=== PATIENT | male | born 1980 | race Caucasian/White ===

== ENCOUNTER 2019-06-28 22:13 | Emergency (ER) | payer MEDICARE ==
[~2019-06-28] VITALS: Ht 175.3 cm; Wt 100.9 kg
[2019-06-28 22:16] VITALS: BP 151/88
[2019-06-28] MEDS ORDERED: INHA1INH2 (22:40)
[2019-06-28] MEDS ORDERED: ALBU18HF2 INH (22:40)
== END 2019-06-28 23:00 | disposition home or self-care (01) ==
LOC: ER 22:20
DX: J06.9 Acute upper respiratory infection, unspecified (principal); F12.90 Cannabis use, unspecified, uncomplicated; Z87.891 Personal history of nicotine dependence; Z79.899 Other long term (current) drug therapy
CPT/HCPCS: 99283

== ENCOUNTER 2023-06-05 08:04 | Emergency (ER) | payer MEDICARE, OTHER ==
[~2023-06-05] VITALS: Ht 175.3 cm; Wt 76.4 kg
[~2023-06-05 08:04] MED LIST: ALBU18HF2 INH; INHA1INH2
[2023-06-05 08:07] VITALS: BP 139/82; PULSE 100; RESP 16; TEMP 98.4; O2SAT 98
[2023-06-05] MEDS ORDERED: ONDA4TAB12 PO (10:15)
[2023-06-05] MEDS: ondansetron 4mg rapidly disintigrating tab PO ONE (10:35)
== END 2023-06-05 10:37 | disposition home or self-care (01) ==
LOC: ER 08:05
DX: B34.9 Viral infection, unspecified (principal); Z20.822 Contact with and (suspected) exposure to COVID-19; R11.0 Nausea; J00 Acute nasopharyngitis [common cold]; Z91.018 Allergy to other foods; Z79.899 Other long term (current) drug therapy; F12.90 Cannabis use, unspecified, uncomplicated
CPT/HCPCS: 36415; 71045; 87502; 87503; 87811; 99284

== ENCOUNTER 2024-04-16 09:16 | Emergency (ER) | payer OTHER ==
[~2024-04-16] VITALS: Ht 175.3 cm; Wt 77.5 kg
[~2024-04-16 09:16] MED LIST changes: +ONDA-243 PO
[2024-04-16 09:20] VITALS: TEMP 97.9
[2024-04-16 11:09] VITALS: BP 108/66; PULSE 59; RESP 15; O2SAT 98
== END 2024-04-16 11:31 | disposition home or self-care (01) ==
LOC: ER 09:16
DX: S86.011A Strain of right Achilles tendon, initial encounter (principal); F12.90 Cannabis use, unspecified, uncomplicated; Z91.018 Allergy to other foods; Z79.899 Other long term (current) drug therapy; X58.XXXA Exposure to other specified factors, initial encounter; Y93.89 Activity, other specified; Y92.89 Other specified places as the place of occurrence of the external cause; Y99.8 Other external cause status
CPT/HCPCS: 99281